=== PATIENT | female | born 1985 | race Caucasian/White ===

== ENCOUNTER 2017-03-05 16:58 | Emergency (ER) | payer SELFPAY ==
[~2017-03-05] VITALS: Ht 157.5 cm; Wt 68.5 kg
[~2017-03-05 16:58] MED LIST: ACET-2321; CYCL-375 PO; IBUP-1724 PO
[2017-03-05 17:00] VITALS: Ht 157.5 cm; Wt 68.5 kg
--- OUTSIDE RECORDS SUMMARY | 2017-03-05 17:03 | XMS REPORT ---
Author Author GENERATED, SYSTEM Organization Unknown Address Unknown Phone Unavailable Care Team Providers Care Security Developer Name Role Phone UNASSIGNED DOCTOR , DOCTOR PP [phone] Reason For Visit Chief Complaint RT HIP PAIN Social History Functional Status Vital Signs Results Problems Encounter Diagnosis No relevant problems exist. Encounters Encounter Diagnosis No relevant problems exist. Plan of Care Procedures No relevant procedures performed. Immunizations No immunizations administered or ordered. Hospital Course Hospital Discharge Instructions Allergies, Adverse Reactions, Alerts * Latex Allergy has not been assessed. * IV Contrast Allergy has not been assessed. Medication Medication reconciliation has not been performed.
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
--- OUTSIDE RECORDS SUMMARY | 2017-03-05 17:03 | XMS REPORT | Summary of Care ---
Author Author Des Torres D.O. Organization Unknown Address [address], [place] [id number] Phone Unavailable Care Team Providers Care Cash Control Specialist Name Role Phone Aliza Mai PP Unavailable Unavailable Unavailable Functional Status Functional Status Health Issues* Name Dates Details Functional status health issues are not documented Status: Cognitive Status Health Issues* Name Dates Details Cognitive status health issues are not documented Status: Problems Name Dates Details Wheezing (786.07, R06.2) Status: Active Pneumonia, bacterial (482.9, J15.9) Status: Active Reactive airway disease (493.90, J45.909) Status: Active Tobacco abuse (305.1, Z72.0) Status: Active Cough (786.2, R05) Status: Active Bronchitis, acute (466.0, J20.9) Status: Active Medications Name Dates Details Medication not documented Allergies and Adverse Reactions Name Dates Details Penicillins Status: Active Sulfa Drugs Status: Active Procedures Procedure Dates Details Procedures not documented Immunization Name Dates Details Immunizations not documented Social History Smoking Status* Unknown if ever smoked Vital Signs Date Test Result Details No Known Vitals to report Results Date Description Value Details Results not documented Plan of Care Planned Observations* Name Dates Details Planned Goals not documented Goal Planned Encounters* Appointment; Provider: Valdez Monae On 23-Feb-2008 15:45 * Appointment; Provider: Valdez Monae On 09-Feb-2008 15:00 Instructions * Instructions not documented Encounters Appointment; Stefan Aviles Encounter Diagnosis: Problem not documented On 08-Oct-2014 12:15 Appointment; Des Torres Encounter Diagnosis: Problem not documented On 28-Sep-2014 15:30 Appointment; Aliza Mai Encounter Diagnosis: Problem not documented On 26-Sep-2014 09:30 Appointment; Des Torres Encounter Diagnosis: Problem not documented On 14-Sep-2014 14:00 Appointment; Quiana Ye Encounter Diagnosis: Problem not documented On 14-Jun-2014 15:30
--- OUTSIDE RECORDS SUMMARY | 2017-03-05 17:03 | XMS REPORT | Summary of Care ---
Author Author Aliza Mai M.D. Organization Unknown Address [address] [place], [place] [phone] Phone Unavailable Care Team Providers Care Accuracy Expert Name Role Phone Zuleyma Ramirez M.D. Unavailable Unavailable Irish Mai M.D. Unavailable Unavailable Aliza Mai PP Unavailable Unavailable Unavailable Functional [...] Status: Active Sinusitis (473.9, J32.9) Status: Active Opiate addiction (304.00, F11.20) Status: Active Anxiety (300.00, F41.9) Status: Active Medications Name Dates Details Hydrocodone-Acetaminophen [...] Body Surface Area Calculated 1.64 m2 Status: 19-Sep-2015 12:27 BP Systolic 118 mm[Hg] Status: BP Diastolic 68 mm[Hg] Status: Weight 145 lb Status: Body Mass Index Calculated 26.52 kg/m2 Status: Body Surface Area Calculated 1.67 m2 Status: Results Date Description Value Details 19-Sep-2015 12:53 CBC w/ Auto Diff 7150 WBC 5.8 K/uL (Better) Range: 4.5-11.0 RBC 4.66 mil/uL (Better) Range: 3.60-5.00 HGB 14.4 g/dL (Better) Range: 12.0-16.0 HCT 45.3 % (Better) Range: 36.0-48.0 MCV 97.1 fL (Better) Range: 80.0-99.0 MCH 30.9 pg (Better) Range: 27.3-32.5 MCHC 31.8 % (Below low threshold) Range: 32.0-36.0 RDW 13.3 % (Better) Range: 11.6-14.8 PLATELETS 256 K/uL (Better) Range: 150-400 MPV 7.8 fL (Better) Range: 6.0-11.0 %NEUTRO 65.6 % (Better) Range: 37.0-80.0 %LYMPHS 27.3 % (Better) Range: 13.0-50.0 %MONO 3.1 % (Better) Range: 0.0-12.0 %EOS 2.4 % (Better) Range: 0.0-7.0 %BASO 0.3 % (Better) Range: 0.0-2.5 %KATHARINA 1.3 % (Better) Range: 0.0-5.0 NEUTRO 3.8 K/uL (Better) Range: 2.0-6.9 LYMPHS 1.6 K/uL (Better) Range: 0.6-3.4 MONOS 0.2 K/uL (Better) Range: 0.0-0.9 EOS 0.1 K/uL (Better) Range: 0.0-0.7 BASO 0.0 K/uL (Better) Range: 0.0-0.2 13:06 BASIC METABOLIC PROFILE 1210 SODIUM 137 mmol/L (Better) Range: 133-144 POTASSIUM 3.9 mmol/L (Better) Range: 3.5-5.1 CHLORIDE 101 mmol/L (Better) Range: 98-110 CARBON DIOXIDE 27.0 mmol/L (Better) Range: 23.0-33.0 ANION GAP 9 mmol/L (Better) Range: 6-16 BUN 11 mg/dL (Better) Range: 7-18 CREATININE, SERUM 0.96 mg/dL (Better) Range: 0.55-1.02 Comments: Please note new reference ranges effective 2015.----- EST GFR, >60 ml/min (Better) Range: >60 EST GFR, NON-AFR GUAMANIAN >60 ml/min (Better) Range: >60 Comments: EST GFR is reported in ml/min per 1.73 m2 of body surface area. For -[place], please multiple result by 1.2.----- BUN:CREATININE RATIO 11 (Better) GLUCOSE 82 mg/dL (Better) Range: 70-100 CALCIUM 8.6 mg/dL (Better) Range: 8.5-10.1 13:06 LIVER PROFILE 1215 ALK PHOSPHATASE 60 U/L (Better) Range: 46-116 TOTAL BILIRUBIN 0.40 mg/dL (Better) Range: 0.20-1.00 DIRECT BILIRUBIN 0.10 mg/dL (Better) Range: 0.00-0.20 AST 14 U/L (Better) Range: 8-35 ALT 26 U/L (Better) Range: 14-59 Comments: Please note new reference ranges. Effective 01/19/2015.----- ALBUMIN 3.8 g/dL (Better) Range: 3.4-5.0 TOTAL PROTEIN 7.3 g/dL (Better) Range: 6.4-8.2 13:12 THYROID STIM. HORMONE 3602 THYROID STIM. HORMONE 0.594 uIU/mL (Better) Range: 0.550-4.780 Comments: No established reference ranges for infants and children <2 years of age----- 22-Sep-2015 07:42 Drug Screen PM, Fentanyl [id number] Comments: [facility] at: [facility], [address] [place] [address], [address], [address], Shark Biologist: May Knight Ph.D.[facility] Collection Date/Time: [id number] Results Received Date/Time: [id number] Reported Date/Time: Fentanyl NEGATIVE ng/mL (Better) Range: <0.5 Comments: [AP]----- Norfentanyl NEGATIVE ng/mL (Better) Range: <0.5 Comments: [AP]----- 11:45 Drug Screen PM, Tramadol [id number] Comments: [facility] at: [facility], [address] [place] [address], [address], [address], Shark Biologist: May Knight Ph.D.[facility] Date/Time: [id number] Results Received Date/Time : [id number] Reported Date/Time: [id number] performed at: [facility], [address] [place] [address], [address], [address], Shark Biologist: May Knight Ph.D.[facility] Date/Time: [id number] Results Received Date/Time : [id number] Reported Date/Time: [id number] Desmethyltramadol NEGATIVE ng/mL (Better) Range: <100 Comments: [AP]----- Tramadol NEGATIVE ng/mL (Better) Range: <100 Comments: [AP]----- 14:36 Drug Screen PM, Alcohol Metabolites [id number] Comments: [facility] performed at: [facility], [address] [place] [address], [address], [address], Shark Biologist: May Knight Ph.D.[facility] Collection Date/Time: [id number] Results Received Date/Time: [id number] Reported Date/Time: [id number] performed at: [facility], [address] [place] [address], [address], [address], Shark Biologist: May Knight Ph.D.[facility] Date/Time: [id number] Results Received Date/Time: [id number] Reported Date/Time: [id number] performed at: [facility], [address] [place] [address], [address], [address], Shark Biologist: May Knight Ph.D.[facility] Date/Time: [id number] Results Received Date/Time: [id number] Reported Date/Time: [id number] Alcohol Metabolites NEGATIVE ng/mL (Better) Range: <500 Comments: [AP]----- Please note: SEE NOTE (Better) Comments: * These results are for medical treatment only Analysis was performed as non-forensic testing *For assistance with interpreting these drug results,please contact a [employer] ToxicologySpecialist: [phone] ( ),M-F, 8am-6pm EST.[AP]----- 23-Sep-2015 10:00 Drug Screen PM Profile 1 [id number] Comments: [facility] performed at: , [facility], [address] [place] [address], [address], [place], [address], Shark Biologist: May Knight Ph.D.[facility] Date/Time: [id number] Results Received Date/Time: [id number] Reported Date/Time: [id number] performed at: , [facility], [address] [place] [address], [address], [place], [place], [address] [place] [address], Shark Biologist: May Knight Ph.D.[facility] Date/Time: [id number] Results Received Date/Time: [id number] Reported Date/Time: [id number] performed at: , [facility], [address] [place] [address], [address], [place], [place], [address] [place] [address], Shark Biologist: May Knight Ph.D.[facility] Date/Time: [id number] Results Received Date/Time: [id number] Reported Date/Time: [id number] performed at: , [facility], [address] [place] [address], [address], [place], [place], [address] [place] [address], Shark Biologist: May Knight Ph.D.[facility] Date/Time: [id number] Results Received Date/Time: [id number] Reported Date/Time: [id number] performed at: [facility], [address] [place] [address], [address], [place], [place], [address] [place] [address], Shark Biologist: May Knight Ph.D.[facility] Date/Time: [id number] Results Received Date/Time: [id number] Reported Date/Time: [id number] Management Profile 1 w/ Confirmation, Urine Drug 1 HydrocodonePain Management Profile 1 w/ Confirmation, Urine Drug 2 No Answer GivenPain Management Profile 1 w/ Confirmation, Urine Drug 3 No Answer GivenPain Management Profile 1 w/ Confirmation, Urine Drug 4 No Answer GivenPain Management Profile 1 w/ Confirmation, Urine Drug 5 No Answer Given Prescribed Drug 1 Hydrocodone (Better) Comments: [AP]----- Creatinine 168.4 mg/dL (Better) Range: > or=20.0 Comments: [AP]----- pH 6.42 (Better) Range: 4.5 - 9.0 Comments: [AP]----- Oxidant NEGATIVE mcg/mL (Better) Range: <200 Comments: [AP]----- Amphetamines NEGATIVE ng/mL (Better) Range: <500 Comments: [AP]----- medMATCH Amphetamines CONSISTENT (Better) Comments: [AP]----- Barbiturates NEGATIVE ng/mL (Better) Range: <300 Comments: [AP]----- medMATCH Barbiturates CONSISTENT (Better) Comments: [AP]----- Benzodiazepines NEGATIVE CONFIRMED ng/mL (Better) Range: <100 Comments: [AP]----- Alphahydroxyalprazolam NEGATIVE ng/mL (Better) Range: <25 Comments: [AP]----- medMATCH aOH alprazolam CONSISTENT (Better) Comments: [AP]----- Alphahydroxymidazolam NEGATIVE ng/mL (Better) Range: <50 Comments: [AP]----- medMATCH aOH midazolam CONSISTENT (Better) Comments: [AP]----- Alphahydroxytriazolam NEGATIVE ng/mL (Better) Range: <50 Comments: [AP]----- medMATCH aOH triazolam CONSISTENT (Better) Comments: [AP]----- Aminoclonazepam NEGATIVE ng/mL (Better) Range: <25 Comments: [AP]----- medMATCH Aminoclonazepam CONSISTENT (Better) Comments: [AP]----- Hydroxyethylflurazepam NEGATIVE ng/mL (Better) Range: <50 Comments: [AP]----- medMATCH OH,Et flurazepam CONSISTENT (Better) Comments: [AP]----- Lorazepam NEGATIVE ng/mL (Better) Range: <50 Comments: [AP]----- medMATCH Lorazepam CONSISTENT (Better) Comments: [AP]----- Nordiazepam NEGATIVE ng/mL (Better) Range: <50 Comments: [AP]----- medMATCH Nordiazepam CONSISTENT (Better) Comments: [AP]----- Oxazepam NEGATIVE ng/mL (Better) Range: <50 Comments: [AP]----- medMATCH Oxazepam CONSISTENT (Better) Comments: [AP]----- Temazepam NEGATIVE ng/mL (Better) Range: <50 Comments: [AP]----- medMATCH Temazepam CONSISTENT (Better) Comments: [AP]----- Marijuana Metabolite NEGATIVE ng/mL (Better) Range: <20 Comments: [AP]----- medMATCH Marijuana Metab CONSISTENT (Better) Comments: [AP]----- Cocaine Metabolite NEGATIVE ng/mL (Better) Range: <150 Comments: [AP]----- medMATCH Cocaine Metab CONSISTENT (Better) Comments: [AP]----- Methadone POSITIVE ng/mL (Abnormal) Range: <100 Comments: [AP]----- EDDP 00271 ng/mL (Above high threshold) Range: <100 Comments: [AP]----- medMATCH EDDP INCONSISTENT (Better) Comments: EDDP is a metabolite of Methadone.[AP]----- Methadone 2944 ng/mL (Above high threshold) Range: <100 Comments: [AP]----- medMATCH Methadone INCONSISTENT (Better) Comments: [AP]----- Opiates POSITIVE ng/mL (Abnormal) Range: <100 Comments: [AP]----- Codeine NEGATIVE ng/mL (Better) Range: <50 Comments: [AP]----- medMATCH Codeine CONSISTENT (Better) Comments: [AP]----- Hydrocodone 1620 ng/mL (Above high threshold) Range: <50 Comments: [AP]----- medMATCH Hydrocodone CONSISTENT (Better) Comments: [AP]----- Hydromorphone NEGATIVE ng/mL (Better) Range: <50 Comments: [AP]----- medMATCH Hydromorphone CONSISTENT (Better) Comments: This metabolite was not present at or above the cutoff.[AP]----- Morphine NEGATIVE ng/mL (Better) Range: <50 Comments: [AP]----- medMATCH Morphine CONSISTENT (Better) Comments: [AP]----- Norhydrocodone 09449 ng/mL (Above high threshold) Range: <50 Comments: [AP]----- medMATCH Norhydrocodone CONSISTENT (Better) Comments: Norhydrocodone is a metabolite of Hydrocodone.[AP]----- Oxycodone NEGATIVE ng/mL (Better) Range: <100 Comments: [AP]----- medMATCH Oxycodone CONSISTENT (Better) Comments: [AP]----- Phencyclidine NEGATIVE ng/mL (Better) Range: <25 Comments: [AP]----- medMATCH Phencyclidine CONSISTENT (Better) Comments: [AP]----- COMMENT SEE NOTE (Better) Comments: medMATCH comments are: - present when drug test results may be the result of metabolism of one or more drugs or when results are inconsistent with prescribed medication(s) listed. - may be blank when drug results are consistent with prescribed medication(s) listed.[AP]----- 10:00 Drug Screen PM, Meperidine [id number] Comments: [facility] performed at: [facility], [address] [place] [address], [address], [place], [address], Shark Biologist: May Knight Ph.D.[facility] Collection Date/Time: [id number] Results Received Date/Time : [id number] Reported Date/Time: [id number] performed at: [facility], [address] [place] [address], [address], [place], [address], Shark Biologist: May Knight Ph.D.[facility] Date/Time: [id number] Results Received Date/Time : [id number] Reported Date/Time: [id number] performed at: [facility], [address] [place] [address], [address], [place], [address], Shark Biologist: May Knight Ph.D.[facility] Collection Date/Time: [id number] Results Received Date/Time : [id number] Reported Date/Time: [id number] performed at: , [facility], [address] [place] [address], [address], [place], [address], Shark Biologist: May Knight Ph.D.[facility] Date/Time: [id number] Results Received Date/Time : [id number] Reported Date/Time: [id number] performed at: , [facility], [facility], [address], [place], [address], Shark Biologist: May Knight Ph.D.[facility] Date/Time: [id number] Results Received Date/Time : [id number] Reported Date/Time: [id number] Meperidine NEGATIVE ng/mL (Better) Range: <100 Comments: [AP]----- Normeperidine NEGATIVE ng/mL (Better) Range: <100 Comments: [AP]----- Plan of Care Planned Observations* Name Dates [...] not documented On 02-Aug-2015 14:00 Appointment; Valdez iVllalobos Encounter Diagnosis: Problem not documented On 29-Jun-2015 [...]
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
--- OUTSIDE RECORDS SUMMARY | 2017-03-05 17:03 | XMS REPORT ---
Author Author GENERATED, SYSTEM Organization Unknown Address Unknown Phone Unavailable Care Team Providers Care Automotive Electrician Name Role Phone UNASSIGNED DOCTOR , DOCTOR PP [phone] Reason For Visit Chief Complaint HEAD/NECK/BACK PAIN FELL THIS MORNING Social History Functional Status Vital Signs Results [...]
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
--- OUTSIDE RECORDS SUMMARY | 2017-03-05 17:03 | XMS REPORT ---
Author Author GENERATED, SYSTEM Organization Unknown Address Unknown Phone Unavailable Care Team Providers Care Boat Garnisher Name Role Phone UNASSIGNED DOCTOR , DOCTOR PP [phone] Reason For Visit Chief Complaint NUMBNESS/TINGLING Social History Functional Status Vital Signs Results Chemistry from 10/19/2014 2:45 PMSODIUM 141 MMOL/L (136-145 MMOL/L) POTASSIUM 3.5 MMOL/L (3.5-5.1 MMOL/L) CHLORIDE 108 MMOL/L H (98-107 MMOL/L) TCO2 25.0 MMOL/L (21.0-32.0 MMOL/L) ANION GAP 8.0 MMOL/L (8.0-16.0 MMOL/L) BUN 9 MG/DL (7-18 MG/DL) CREATININE 0.59 MG/DL (0.43-0.83 MG/DL) BUN/CREATININE RATIO 15.3 (9.1-17.0 ) GLUCOSE 114 MG/DL H (65-99 MG/DL) GFR EST NON AFR PALAUAN >90 ML/MIN GFRA EST AFR AMER >90 ML/MIN CALCIUM 8.8 MG/DL (8.5-10.1 MG/DL) BILIRUBIN TOTAL 0.18 MG/DL L (0.20-1.00 MG/DL) TOTAL PROTEIN 6.7 GM/DL (6.4-8.2 GM/DL) ALBUMIN 3.4 GM/DL (3.4-5.0 GM/DL) GLOBULIN 3.3 GM/DL (2.3-3.5 GM/DL) A/G RATIO 1.0 MG/DL L (1.5-2.2 MG/DL) ALK PHOS 56 U/L (46-116 U/L) ALT (SGPT) 23 U/L (12-78 U/L) AST (SGOT) 13 U/L L (15-37 U/L) TROPONIN-I <0.04 (SEE BELOW ) TEST NEGATIVE (NEGATIVE ) ALCOHOL <0.003 GM/DL ACETAMINOPHEN <2 MCG/ML L (10-30 MCG/ML) SALICYLATE 2.3 MG/DL L (2.8-20.0 MG/DL) Hematology from 10/19/2014 2:45 PMWBC 7.8 X10e3/UL (3.6-11.2 X10e3/UL) RBC 4.26 X10e6/UL (3.63-4.92 X10e6/UL) HEMOGLOBIN 13.3 G/DL (11.0-14.3 G/DL) HEMATOCRIT 39.0 % (31.2-41.9 %) MCV 91.5 FL (79.0-98.0 FL) MCH 31.1 PG (27.0-33.0 PG) MCHC 34.0 G/DL (32.0-36.0 G/DL) RDW 13.2 % (12.3-17.0 %) PLATELET 207 X10e3/UL (159-386 X10e3/UL) MPV 9.9 FL (7.4-10.4 FL) AUTOMATED DIFF PERFORMED SEGS 68.2 % LYMPHOCYTES 23.9 % MONOCYTES 6.4 % EOSINOPHILS 0.8 % BASOPHILS 0.7 % ABSOLUTE NEUTROPHILS 5.2 X10e3/UL (1.8-7.8 X10e3/UL) ABSOLUTE LYMPHOCYTES 1.9 X10e3/UL (1.0-3.0 X10e3/UL) ABSOLUTE MONOCYTES 0.5 X10e3/UL (0.3-1.0 X10e3/UL) ABSOLUTE EOSINOPHILS 0.1 X10e3/UL (0.0-0.5 X10e3/UL) ABSOLUTE BASOPHILS 0.1 X10e3/UL (0.0-0.2 X10e3/UL) Coagulation from 10/19/2014 2:45 PMD-DIMER 0.21 MG/L FEU (0.00-0.50 MG/L FEU) DX Radiology from 10/19/2014 2:39 PMCHEST 1 VIEW DATE OF EXAM: Oct 19 2014 2: 53PM Proc: DG 0066 - CHEST 1 VIEW CPT Code(s): 65799-; ; ; INDICATION / CLINICAL HISTORY: Head and chest pain. COMPARISON: None. FINDINGS: The cardiac silhouette and pulmonary vasculature are within normal limits. There are no acute infiltrates or effusions. IMPRESSION: No acute cardiopulmonary disease. CT Scan from 10/19/2014 2:39 PMCT CEREBRAL W/O CONTRAST DATE OF EXAM: Oct 19 2014 2:57PM Proc: CT 0001 - CT CEREBRAL W/O CONTRAST CPT Code(s): 41195-; ; ; INDICATION / CLINICAL HISTORY: Numbness and tingling. Head and chest pain. COMPARISON: None. FINDINGS: The ventricles are normal in size and configuration. There is no mass effect or midline shift. No intracranial hemorrhage or abnormal extraaxial fluid collections are demonstrated. There is partial opacification of the sphenoid sinus. IMPRESSION: No acute intracranial processes. Problems Encounter Diagnosis No relevant problems exist. [...]
--- OUTSIDE RECORDS SUMMARY | 2017-03-05 17:03 | XMS REPORT ---
Author Author GENERATED, SYSTEM Organization Unknown Address Unknown Phone Unavailable Care Team Providers Care Crankshaft Balancer Name Role Phone UNASSIGNED DOCTOR , DOCTOR PP [phone] Reason For Visit Chief Complaint HIP PAIN Social History Functional Status Vital [...]
--- OUTSIDE RECORDS SUMMARY | 2017-03-05 17:03 | XMS REPORT | Summary of Care ---
Author Author Aliza Mai M.D. Unknown Address [address] [place], [place] [address] Phone Unavailable Care Team Providers Care Computer Numerical Control Operator Name Role Phone Zuleyma Ramirez M.D. Unavailable [...]
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
--- OUTSIDE RECORDS SUMMARY | 2017-03-05 17:03 | XMS REPORT | Continuity of Care Document ---
Author Author Jacqueline Younger MA [facility] Address [address] [place] [address] Phone Care Team Providers Care Over Short And Damage Clerk Name Role Phone Josh Peguero PP Unavailable Payers Payer name Insurance type Covered green party ID Authorization(s) Unknown Problems Condition Effective Dates (start - stop) Clinical Status Overweight - *Chronic ACUTE BRONCHOSPASM - *Acute Bronchitis, Acute - *Acute Overweight - Improved Bronchitis, Acute - *Acute Diarrhea - *Acute Overweight - Improved Obesity - *Chronic Fall at home - *Acute Place of occurrence, home - *Acute Back pain - *Acute Cough - *Acute Viral Infection, Unspecified - *Acute Noninfectious Gastroenteritis - *Acute Amenorrhea - *Acute Family History Family Member Diagnosis Age At [...] every day before breakfast 37.5 MG - No Longer Active ZYRTEC (unknown strength) - Active IBUPROFEN (unknown strength) - Active phentermine 37.5 mg tablet take 1 tablet (37.5MG) by oral route every day before breakfast 37.5 MG - Active Immunizations Vaccine Date Status Comments Unknown Results Test Name Date and Time Measure Units Reference Range Abnormal Flag Comments Unknown Vital Signs Date / Time: Height Weight Pulse Rate Blood Pressure Temperature /16:12:00 62.50 in 160.20 lbs 99 /min 120/90 mm[Hg] 98.0 F Procedures Procedure Date Unknown Encounters Encounter Location Date Patient Visit [facility] Patient Visit [facility] Patient Visit [facility] Patient Visit [facility] Patient Visit [facility] Patient Visit [facility] Patient Visit [facility] Patient Visit [facility] Patient Visit [facility] Care Patient Visit [facility] Advance Directives Directive Effective Date Unknown
--- OUTSIDE RECORDS SUMMARY | 2017-03-05 17:04 | XMS REPORT | Summary of Care ---
Author Author Des Torres D.O. Organization Unknown Address [address] [place], [place] [address] Phone Unavailable Care Team Providers Care Medical Coder Name Role Phone Aliza Mai JAYLENE Unavailable [...]
--- OUTSIDE RECORDS SUMMARY | 2017-03-05 17:04 | XMS REPORT ---
Author Author [facility] Organization [facility] Address [address] [place], [place] [address] Phone [phone] Summary purpose CCDA Sent to [facility] Chief Complaint and Reason for Visit No authorized Reason for Visit (Admitting Diagnosis) is available for this visit. Problem list No authorized problems tracked for continuity of care are available for this visit. Encounters No authorized problems tracked for encounter diagnoses are available for this visit. Medications No home medications recorded for this patient visit Allergies, adverse reactions, alerts Allergen Category Ingredient Status Reaction Severity Onset Penicillins Drug Penicillins Active Sulfa (Sulfonamide Antibiotics) Drug Sulfa (Sulfonamide Antibiotics) Active Immunizations No immunizations recorded for this patient visit Relevant diagnostic tests and/or laboratory data RESULTS Urinalysis 10-63-641926:00:00 Result Normal Range Units Site Voided Urine Color Yellow Yellow Urine Appearance AB Cloudy Clear Urine Glucose Negative Negative Urine Ketones AB 2+ Negative Urine Bilirubin AB 1+ Negative Urine Protein AB 1+ Negative Urine Specific [place] 1.030 Urine Urobilinogen 0.2 0.2-1.0 Urine pH 5.5 Urine Nitrite Negative Negative Urine Blood AB 3+ Negative Urine Leukocytes Negative Negative Urine WBC 0-2 /hpf Urine RBC >100/lpf Urine Bacteria AB Trace None Seen Squamous Epi Cells 5-6/lpf Mucus 3+ Culture not indicated. Culture not indicated. History of procedures No procedures recorded for this patient visit. Functional status Cognitive Status Finding Observation Time Level of Consciousne Alert :58 Oriented to Person Yes :[address] Yes :58 Oriented to Time Yes :58 Vital signs Type Value Date Respirations 20 :26 Pulse 85 :26 O2 Saturation 99% :26 Systolic Blood Press 119mm/HG [id number]:26 Diastolic Blood Pres 65mm/HG 97-65-860126:26 Temperature (Fahr) 98Degrees 68-32-579502:26 Height 62in :59 Weight 144LB :59 Social history Type Value Smoking Status CURRENT EVERY DAY SMOKER Treatment Plan No treatment plan text is available for this visit. Hospital discharge instructions No discharge instruction text is available for this visit.
--- OUTSIDE RECORDS SUMMARY | 2017-03-05 17:04 | XMS REPORT | Continuity of Care Document ---
Author Author [facility] Organization [facility] Address Unknown Phone Unavailable Support Name Relationship Address Phone DAVID AVILES Next Of Kin [address] [place] [address] Unavailable Insurance Providers Payer Name Policy Number Subscriber Name Relationship Self Pay Kaylyn Aviles 18 Self Problems No Known Problems or Medical conditions. Social History History Response Recorded Date/Time Smoking Status Current every day smoker 05/16/13 8:32am Allergies, Adverse Reactions, Alerts Allergen Type Severity Reaction Last Updated Penicillins Allergy Severe 05/16/13 Sulfa (Sulfonamide Antibiotics) Allergy Severe 05/16/13 Medications No known medications Response Recorded Date/Time Status not known Unknown Results No Known Relevant Diagnostic Tests, Laboratory Data and/or Discharge Summary. Procedures Procedure Code Date THER/PROPH/DIAG INJ IV PUSH 48260 05/16/13 TX/PRO/DX INJ NEW DRUG ADDON 54474 05/16/13 TX/PRO/DX INJ NEW DRUG ADDON 79574 05/16/13 HYDRATE IV INFUSION ADD-ON 71907 05/16/13 Encounters Encounter Location Date/Time Departed Emergency Room [facility] 05/16/13 8:14am
--- OUTSIDE RECORDS SUMMARY | 2017-03-05 17:04 | XMS REPORT ---
Author Author GENERATED, SYSTEM Organization Unknown Address Unknown Phone Unavailable Care Team Providers Care Shoe Trimmer Name Role Phone MD KATHY, JULIAN PP [phone] Reason For Visit Chief Complaint COUGH Social History Functional Status Vital Signs Results [...]
--- OUTSIDE RECORDS SUMMARY | 2017-03-05 17:04 | XMS REPORT | Summary of Care ---
Author Author Zuleyma Ramirez M.D. Unknown Address [address] [place], [place] [id number] Phone Unavailable Care Team Providers Care Machine Sewer Name Role Phone Zuleyma Ramirez M.D. Unavailable Unavailable Pau Jones, Irish Unavailable Unavailable Aliza Mai PP Unavailable Unavailable [...] Quantity: 30 Zuleyma Ramirez M.D.* Started 11-Sep-2015 ActiveProventil HFA 108 (90 Base) MCG/ACT Inhalation Aerosol Solution INHALE 2 PUFFS 3 TIMES DAILY NEEDED. * Quantity: 1 Refills: 2 Aliza Mai M.D.* Started 19-Sep-2015 Active6.7 GM Inhaler Allergies and Adverse Reactions Name Dates Details Penicillins Status: Active Sulfa Drugs Status: Active Procedures Procedure Dates Details Drug Screen Pain Management 8400 Ordered:19-Sep-2015 Immunization Name Dates Details Immunizations not documented Social History Name Dates Details Smoking Status* Smoker. current status unknown Vital Signs Date Test Result Details 19-Sep-2015 12:27 BP Systolic 118 mm[Hg] Status: BP Diastolic 68 mm[Hg] Status: Weight 145 lb Status: Body Mass Index Calculated 26.52 kg/m2 Status: Body Surface Area Calculated 1.67 m2 Status: 11-Sep-2015 13:00 BP Systolic 112 mm[Hg] Status: [...] ml/min (Better) Range: >60 EST GFR, NON-AFR ARMENIAN >60 ml/min (Better) Range: >60 Comments: EST GFR is reported in ml/min per 1.73 m2 of body surface area. For -Estonian, please multiple result by 1.2.----- BUN:CREATININE RATIO [...] age----- 22-Sep-2015 07:42 Drug Screen PM, Fentanyl [id number] Comments: [facility] performed at: [facility], [address] [place] [address], [address], [place], [place], [address] [place] [address], Carousel Operator: May Knight Ph.D.[facility] Collection Date/Time: [id number] Results Received Date/Time: [id number] Reported Date/Time: Fentanyl NEGATIVE ng/mL (Better) Range: <0.5 Comments: [AP]----- Norfentanyl NEGATIVE ng/mL (Better) Range: <0.5 Comments: [AP]----- 11:45 Drug Screen PM, Tramadol [id number] Comments: [facility] performed at: [facility], [address] [place] [address], [address], [address], Carousel Operator: May Knight Ph.D.[facility] Collection Date/Time: [id number] Results Received Date/Time : [id number] Reported Date/Time: [id number] performed at: [facility], [address] [place] [address], [address], [address], Carousel Operator: May Knight Ph.D.[facility] Collection Date/Time: [id number] Results Received Date/Time : [id number] Reported Date/Time: [id number] Desmethyltramadol NEGATIVE ng/mL (Better) Range: <100 Comments: [AP]----- Tramadol NEGATIVE ng/mL (Better) Range: <100 Comments: [AP]----- 14:36 Drug Screen PM, Alcohol Metabolites [id number] Comments: [facility] performed at: [facility], [address] [place] [address], [address], [place], [address], Carousel Operator: May Knight Ph.D.[facility] Collection Date/Time: [id number] Results Received Date/Time: [id number] Reported Date/Time: [id number] performed at: , [facility], [address] [place] [address], [address], [place], [address], Carousel Operator: May Knight Ph.D.[facility] Collection Date/Time: [id number] Results Received Date/Time: [id number] Reported Date/Time: [id number] performed at: , [facility], [address] [place] [address], [address], [place], [address], Carousel Operator: May Knight Ph.D.[facility] Collection Date/Time: [id number] Results Received Date/Time: Reported Date/Time: Alcohol Metabolites NEGATIVE ng/mL (Better) Range: <500 Comments: [AP]----- Please note: SEE NOTE (Better) Comments: * These results are for medical treatment only Analysis was performed as non-forensic testing *For assistance with interpreting these drug results,please contact a AddressReport ToxicologySpecialist: [phone] ( ),M-F, 8am-6pm EST.[AP]----- 23-Sep-2015 10:00 Drug Screen PM Profile 1 [id number] Comments: [facility], [address] [place] [address], [address], [place], [address], Carousel Operator: May Knight Ph.D.[facility] Collection Date/Time: [id number] Results Received Date/Time: [id number] Reported Date/Time: [id number] performed at: , [facility], [address] [place] [address], [address], [place], [address], Carousel Operator: May Knight Ph.D.[facility] Collection Date/Time: [id number] Results Received Date/Time: [id number] Reported Date/Time: [id number] performed at: , [facility], [address] [place] [address], [address], [place], [address], Carousel Operator: May Knight Ph.D.[facility] Collection Date/Time: [id number] Results Received Date/Time: [id number] Reported Date/Time: [id number] performed at: , [facility], [facility], [address], [place], [address], Carousel Operator: May Knight Ph.D.[facility] Collection Date/Time: [id number] Results Received Date/Time: [id number] Reported Date/Time: [id number] performed at: , [facility], [address] [facility], [address], [place], [address], Carousel Operator: May Knight Ph.D.[facility] Collection Date/Time: [id number] Results Received Date/Time: [id number] Reported Date/Time: [id number] Management Profile 1 w/ Confirmation, Urine Drug [...] ng/mL (Abnormal) Range: <100 Comments: [AP]----- EDDP 80961 ng/mL (Above high threshold) Range: <100 Comments: [...] medMATCH Morphine CONSISTENT (Better) Comments: [AP]----- Norhydrocodone 62848 ng/mL (Above high threshold) Range: <50 Comments: [...] medication(s) listed.[AP]----- 10:00 Drug Screen PM, Meperidine [id number] Comments: [facility] performed at: [facility], [address] [place] [address], [address], [place], [place], [address] [place] [address], Carousel Operator: May Knight Ph.D.[facility] Collection Date/Time: [id number] Results Received Date/Time : [id number] Reported Date/Time: [id number] performed at: [facility], [address] [place] [address], [address], [place], [address], Carousel Operator: May Knight Ph.D.[facility] Collection Date/Time: [id number] Results Received Date/Time : [id number] Reported Date/Time: [id number] performed at: [facility], [address] [place] [address], [address], [place], [address], Carousel Operator: May Knight Ph.D.[facility] Collection Date/Time: [id number] Results Received Date/Time : [id number] Reported Date/Time: [id number] performed at: [facility], [address] [place] [address], [address], [place], [address], Carousel Operator: May Vang Knight Ph.D.[facility] Collection Date/Time: [id number] Results Received Date/Time : [id number] Reported Date/Time: [id number] performed at: [facility], [address] [place] [address], [address], [place], [address], Carousel Operator: May Vang Knight Ph.D.[facility] Collection Date/Time: [id number] Results Received Date/Time : [id number] Reported Date/Time: [id number] Meperidine NEGATIVE ng/mL (Better) Range: <100 Comments: [...]
--- OUTSIDE RECORDS SUMMARY | 2017-03-05 17:04 | XMS REPORT ---
Author Author GENERATED, SYSTEM Organization Unknown Address Unknown Phone Unavailable Care Team Providers Care Incinerator Operator Name Role Phone UNASSIGNED DOCTOR , DOCTOR PP [phone] Reason For Visit Chief Complaint MIGRAINE WITH FLU LIKE SYMPTOMS Social History Functional Status Vital Signs Results [...]
--- OUTSIDE RECORDS SUMMARY | 2017-03-05 17:04 | XMS REPORT | Summary of Care ---
Author Author Aliza Mai M.D. Organization Unknown Address [address] [place], [place] [id number] Phone Unavailable Care Team Providers Care Grout Machine Tender Name Role Phone Zuleyma Ramirez M.D. Unavailable [...] ml/min (Better) Range: >60 EST GFR, NON-AFR ANDORRAN >60 ml/min (Better) Range: >60 Comments: EST GFR is reported in ml/min per 1.73 m2 of body surface area. For -Latvian, please multiple result by 1.2.----- BUN:CREATININE RATIO [...] age----- 22-Sep-2015 07:42 Drug Screen PM, Fentanyl [id number] Comments: [facility]: [facility], [address] [place] [address], [address], [place], [address], Head Of Cytogenetics: May Knight Ph.D.[facility] Collection Date/Time: [id number] Results Received Date/Time: [id number] Reported Date/Time: Fentanyl NEGATIVE ng/mL (Better) Range: <0.5 Comments: [AP]----- Norfentanyl NEGATIVE ng/mL (Better) Range: <0.5 Comments: [AP]----- 11:45 Drug Screen PM, Tramadol [id number] Comments: [facility] at: [facility], [address] [place] [address], [address], [address], Head Of Cytogenetics: May Knight Ph.D.[facility] Collection Date/Time: [id number] Results Received Date/Time : [id number] Reported Date/Time: [id number] performed at: [facility], [address] [place] [address], [address], [address], Head Of Cytogenetics: May Knight Ph.D.[facility] Collection Date/Time: [id number] Results Received Date/Time : [id number] Reported Date/Time: [id number] Desmethyltramadol NEGATIVE ng/mL (Better) Range: <100 Comments: [AP]----- Tramadol NEGATIVE ng/mL (Better) Range: <100 Comments: [AP]----- 14:36 Drug Screen PM, Alcohol Metabolites [id number] Comments: [facility] performed at: [facility], [address] [place] [address], [address], [address], Head Of Cytogenetics: May Knight Ph.D.[facility] Collection Date/Time: [id number] Results Received Date/Time: [id number] Reported Date/Time: [id number] performed at: [facility], [address] [place] [address], [address], [address], Head Of Cytogenetics: May Knight Ph.D.[facility] Collection Date/Time: [id number] Results Received Date/Time: [id number] Reported Date/Time: [id number] performed at: [facility], [address] [place] [address], [address], [address], Head Of Cytogenetics: May Knight Ph.D.[facility] Collection Date/Time: [id number] Results Received Date/Time: [id number] Reported Date/Time: [id number] Alcohol Metabolites NEGATIVE ng/mL (Better) Range: <500 Comments: [AP]----- Please note: SEE NOTE (Better) Comments: * These results are for medical treatment only Analysis was performed as non-forensic testing *For assistance with interpreting these drug results,please contact a Dibbz ToxicologySpecialist: [phone] ( ),M-F, 8am-6pm EST.[AP]----- 23-Sep-2015 10:00 Drug Screen PM Profile 1 [id number] Comments: [facility] performed at: , [facility], [address] [place] [address], [address], [place], [address], Head Of Cytogenetics: May Knight Ph.D.[facility] Collection Date/Time: [id number] Results Received Date/Time: [id number] Reported Date/Time: [id number] performed at: , [facility], [address] [place] [address], [address], [place], [address] [place] [address], Head Of Cytogenetics: May Knight Ph.D.[facility] Collection Date/Time: [id number] Results Received Date/Time: [id number] Reported Date/Time: [id number] performed at: , [facility], [address] [place] [address], [address], [place], [address] [place] [address], Head Of Cytogenetics: May Knight Ph.D.[facility] Collection Date/Time: [id number] Results Received Date/Time: [id number] Reported Date/Time: [id number] performed at: , [facility], [address] [place] [address], [address], [place], [address] [place] [address], Head Of Cytogenetics: May Knight Ph.D.[facility] Collection Date/Time: [id number] Results Received Date/Time: [id number] Reported Date/Time: [id number] performed at: [facility], [address] [place] [address], [address], [place], [address] [place] [address], Head Of Cytogenetics: May Knight Ph.D.[facility] Collection Date/Time: [id number] Results Received Date/Time: [id number] Reported Date/Time: [id number] Management Profile 1 w/ Confirmation, Urine Drug [...] ng/mL (Abnormal) Range: <100 Comments: [AP]----- EDDP 07657 ng/mL (Above high threshold) Range: <100 Comments: [...] medMATCH Morphine CONSISTENT (Better) Comments: [AP]----- Norhydrocodone 94966 ng/mL (Above high threshold) Range: <50 Comments: [...] medication(s) listed.[AP]----- 10:00 Drug Screen PM, Meperidine [id number] Comments: [facility] performed at: [facility], [address] [place] [address], [address], [place], [address], Head Of Cytogenetics: May Knight Ph.D.[facility] Collection Date/Time: [id number] Results Received Date/Time : [id number] Reported Date/Time: [id number] performed at: [facility], [address] [place] [address], [address], [place], [address], Head Of Cytogenetics: May Knight Ph.D.[facility] Collection Date/Time: [id number] Results Received Date/Time : [id number] Reported Date/Time: [id number] performed at: [facility], [address] [place] [address], [address], [place], [address], Head Of Cytogenetics: May Knight Ph.D.[facility] Collection Date/Time: [id number] Results Received Date/Time : [id number] Reported Date/Time: [id number] performed at: , [facility], [address] [place] [address], [address], [place], [address], Head Of Cytogenetics: May Knight Ph.D.[facility] Collection Date/Time: [id number] Results Received Date/Time : [id number] Reported Date/Time: [id number] performed at: , [facility], [facility], [address], [place], [address], Head Of Cytogenetics: May Knight Ph.D.[facility] Collection Date/Time: [id number] Results Received Date/Time : [id number] Reported Date/Time: [id number] Meperidine NEGATIVE ng/mL (Better) Range: <100 Comments: [...]
--- OUTSIDE RECORDS SUMMARY | 2017-03-05 17:04 | XMS REPORT ---
Author Author GENERATED, SYSTEM Organization Unknown Address Unknown Phone Unavailable Care Team Providers Care Director Of Teaching And Learning Name Role Phone UNASSIGNED DOCTOR , DOCTOR PP [phone] Reason For Visit Chief Complaint FELL HIT HEAD Social History Functional Status Vital Signs Results [...]
--- OUTSIDE RECORDS SUMMARY | 2017-03-05 17:04 | XMS REPORT ---
Author Author GENERATED, SYSTEM Organization Unknown Address Unknown Phone Unavailable Care Team Providers Care Penology Teacher Name Role Phone UNASSIGNED DOCTORMD DOCTOR PP [phone] Reason For Visit Chief Complaint ALLERGIC REACTION Social History Functional Status Vital Signs Results [...]
--- OUTSIDE RECORDS SUMMARY | 2017-03-05 17:04 | XMS REPORT ---
Author Author GENERATED, SYSTEM Organization Unknown Address Unknown Phone Unavailable Care Team Providers Care Senior Business Objects Developer Name Role Phone MD KATHY, JULIAN PP [phone] Reason For Visit Chief Complaint ELBOW PAIN Social History Functional Status Vital Signs [...]
--- OUTSIDE RECORDS SUMMARY | 2017-03-05 17:04 | XMS REPORT | Summary of Care ---
Author Author Aliza Mai M.D. Organization Unknown Address [address] [place], [place] [address] Phone Unavailable Care Team Providers Care Irrigation Worker Name Role Phone Pau Jones, R Unavailable Unavailable Aliza Mai PP Unavailable Unavailable [...] F11.20) Status: Active Medications Name Dates Details Proventil HFA 108 (90 Base) MCG/ACT Inhalation Aerosol Solution INHALE 2 PUFFS 3 TIMES DAILY NEEDED. Quantity: 1 Aliza Mai M.D.* Started 19-Sep-2015 Active6.7 GM Inhaler Allergies and Adverse Reactions Name Dates Details Penicillins Status: Active Sulfa Drugs Status: Active Procedures Procedure Dates Details CBC w/ Auto Diff 7150 Ordered:19-Sep-2015 BASIC METABOLIC PROFILE 1210 Ordered:19-Sep-2015 THYROID STIM. HORMONE 3602 Ordered:19-Sep-2015 LIVER PROFILE 1215 Ordered:19-Sep-2015 Drug Screen Pain Management 8400 Ordered:19-Sep-2015 CT HEAD WITHOUT IV CONTRAST Ordered:02-Aug-2015 XRay [...] Planned Encounters* Appointment; Provider: Aliza Mai On 26-Sep-2015 11:30 * Appointment; Provider: Valdez Monae On [...]
--- OUTSIDE RECORDS SUMMARY | 2017-03-05 17:04 | XMS REPORT | Continuity Of Care Document ---
Author Author [facility] Organization [facility] Address [address] [place] [address] Phone Care Team Providers Care Pole Framer Name Role Phone Amanda MULTANI MD AT UNASSIGNED, PHYSICIAN Unavailable Unavailable Results Lab Results Visit/Account #[id number] (July 11, 2015 5:39pm - July 11, 2015 6: 49pm) Test Result Date/Time 63139-8: COMPLETE BLOOD COUNT WITH DIFF WHITE BLOOD COUNT(4.0-11.0 10E3/UL) 5.8 10E3/UL July 11, 2015 5:54pm RED BLOOD COUNT(4.00-5.20 10E6/UL) 4.57 10E6/UL July 11, 2015 5:54pm HEMOGLOBIN(12.0-16.0 G/DL) 14.6 G/DL July 11, 2015 5:54pm HEMATOCRIT(36.0-46.0 %) 42.8 % July 11, 2015 5:54pm MEAN CORPUSCULAR VOLUME(82.0-100.0 FL) 93.7 FL July 11, 2015 5:54pm 87882-2: MEAN CORPUSCULAR HEMOGLOBIN(26.0-34.0 PG) 31.9 PG July 11, 2015 5:54pm MEAN CORPUSCULAR HGB CONC(31.5-36.5 G/DL) 34.1 G/DL July 11, 2015 5:54pm RED CELL DISTRIBUTION WIDTH(11.5-14.5 %) 13.4 % July 11, 2015 5:54pm 777-3: PLATELET COUNT(150-450 10E3/UL) 224 10E3/UL July 11, 2015 5:54pm MEAN PLATELET VOLUME(8.2-12.4 FL) 10.7 FL July 11, 2015 5:54pm 770-8: NEUTROPHILS % (AUTO)(40-70 %) 59 % July 11, 2015 5:54pm LYMPHOCYTES % (AUTO)(15-45 %) 29 % July 11, 2015 5:54pm 5905-5: MONOCYTES % (AUTO)(2-10 %) 9 % July 11, 2015 5:54pm 713-8: EOSINOPHILS % (AUTO)(0-6 %) 1 % July 11, 2015 5:54pm 706-2: BASOPHILS % (AUTO)(0-1 %) 1 % July 11, 2015 5:54pm 26992-2: IMMATURE GRANS % (AUTO)(0-0 %) 0 % July 11, 2015 5:54pm NUCLEATED RBCS (AUTO)(0-0 %) 0 % July 11, 2015 5:54pm 751-8: NEUTROPHILS # (AUTO)(2.5-7.5 10E3/UL) 3.5 10E3/UL July 11, 2015 5:54pm 52328-9: LYMPHOCYTES # (AUTO)(1.0-4.0 10E3/UL) 1.7 10E3/UL July 11, 2015 5:54pm 742-7: MONOCYTES # (AUTO)(0.2-0.8 10E3/UL) 0.5 10E3/UL July 11, 2015 5:54pm 711-2: EOSINOPHILS # (AUTO)(0.0-0.4 10E3/UL) 0.1 10E3/UL July 11, 2015 5:54pm 704-7: BASOPHILS # (AUTO)(0.0-0.2 10E3/UL) 0.0 10E3/UL July 11, 2015 5:54pm IMMATURE GRANS # (AUTO)(0.0-0.0 10E3/UL) 0.0 10E3/UL July 11, 2015 5:54pm DIFF TYPE AUTOMATED July 11, 2015 5:54pm UA WITH SCREEN FOR CULTURE 5778-6: COLOR,URINE YELLOW July 11, 2015 5:49pm 69160-4: CLARITY,URINE SL CLOUDY July 11, 2015 5:49pm GLUCOSE, URINE(NEGATIVE MG/DL) NEGATIVE MG/DL July 11, 2015 5:49pm URINE BILIRUBIN(NEGATIVE) NEGATIVE July 11, 2015 5:49pm 46109-5: KETONES,URINE(NEGATIVE MG/DL) NEGATIVE MG/DL July 11, 2015 5:49pm 2965-2: URINE SPECIFIC GRAVITY(1.001-1.035) 1.020 July 11, 2015 5:49pm 15857-0: URINE BLOOD(NEGATIVE) LARGE July 11, 2015 5:49pm 2756-5: URINE PH(5.0-9.0) 6.5 July 11, 2015 5:49pm URINE PROTEIN(Less than 20 MG/DL) NEGATIVE MG/DL July 11, 2015 5:49pm URINE UROBILINOGEN(0.2-1.0 MG/DL) 0.2 MG/DL July 11, 2015 5:49pm URINE NITRITE(NEGATIVE) NEGATIVE July 11, 2015 5:49pm 5799-2: LEUKOCYTE ESTERASE ,URINE(NEGATIVE) NEGATIVE July 11, 2015 5:49pm 630-4: URINE CULTURE NOT INDICATED July 11, 2015 5:49pm URINE MICROSCOPIC REQUIRED YES July 11, 2015 5:49pm URINE WBCS(/HPF) NONE SEEN /HPF July 11, 2015 5:49pm 08885-3: URINE RBCS(/HPF) Greater than 100 /HPF July 11, 2015 5:49pm 57113-0: URINE EPITHELIAL CELLS(/HPF) 4-7 /HPF July 11, 2015 5:49pm BACTERIA,URINE(/HPF) 1+ /HPF July 11, 2015 5:49pm URINE CRYSTALS(/HPF) NONE SEEN /HPF July 11, 2015 5:49pm URINE CASTS(/LPF) NONE SEEN /LPF July 11, 2015 5:49pm URINE COMMENTS NONE July 11, 2015 5:49pm 70183-4: COMPLETE METABOLIC PROFILE GLUCOSE(70-110 MG/DL) 103 MG/DL July 11, 2015 5:54pm BLOOD UREA NITROGEN(6-20 MG/DL) 11 MG/DL July 11, 2015 5:54pm CREATININE(0.50-1.20 MG/DL) 0.61 MG/DL July 11, 2015 5:54pm 48456-6: EST GLOMERULAR FILTRATION RATE(Greater than or equal to 60) Greater than or equal to 60 Result Comments: If the patient is of -[place] descent/extraction multiply the eGFR value by 1.212 to obtain the actual eGFR. >=60 mg/dL Normal 30-59 mg/dL Moderate Kidney Disease 15-29 mg/dL Severe Kidney Disease <15 mg/dL Kidney Failure July 11, 2015 5:54pm BUN CREATININE RATIO(10.0-20.0 RATIO) 18.0 RATIO July 11, 2015 5:54pm SODIUM(135-145 MMOL/L) 137 MMOL/L July 11, 2015 5:54pm POTASSIUM(3.6-5.0 MMOL/L) 3.8 MMOL/L July 11, 2015 5:54pm CHLORIDE(101-111 MMOL/L) 106 MMOL/L July 11, 2015 5:54pm 2028-9: CO2(21-31 MMOL/L) 25.0 MMOL/L July 11, 2015 5:54pm 67456-5: ANION GAP(8-18) 10 July 11, 2015 5:54pm OSMO CALCULATED(270.0-290.0) 273.5 July 11, 2015 5:54pm CALCIUM(8.5-10.5 MG/DL) 9.0 MG/DL July 11, 2015 5:54pm BILIRUBIN,TOTAL(0.1-1.2 MG/DL) 0.3 MG/DL July 11, 2015 5:54pm ALKALINE PHOSPHATASE(42-121 IU/L) 51 IU/L July 11, 2015 5:54pm ASPARTATE AMINO TRANSFERASE(10-42 IU/L) 23 IU/L July 11, 2015 5:54pm ALANINE AMINOTRANSFERASE(10-60 IU/L) 30 IU/L July 11, 2015 5:54pm 45596-0: TOTAL PROTEIN(6.4-8.2 G/DL) 7.1 G/DL July 11, 2015 5:54pm ALBUMIN(3.5-5.5 G/DL) 4.0 G/DL July 11, 2015 5:54pm 2336-6: GLOBULIN(2.4-3.6) 3.1 July 11, 2015 5:54pm ALBUMIN/GLOBULIN RATIO(0.9-1.8 RATIO) 1.3 RATIO July 11, 2015 5:54pm 3040-3: LIPASE 3040-3: LIPASE(22-51 U/L) 24 U/L July 11, 2015 5:54pm SERUM HCG, QUALITATIVE 0-5: SERUM HCG, QUALITATIVE(NEGATIVE) NEGATIVE July 11, 2015 5:54pm Allergies and Adverse Reactions Allergies and Adverse Reactions Patient Unit Number: [id number] No allergies recorded. Problem List Problem List Visit/Account #[id number] (July 11, 2015 5:39pm - July 11, 2015 6: 49pm) Acute Problems: Code/Condition Comments Documented Start Date Documented Resolved Date Code (s) Hematuria ICD10: R31.9 Hematuria ICD9: 599.70 Hematuria SNOMED: 11852290 Hematuria Flank pain ICD10: R10.9 Flank pain ICD9: 789.00 Flank pain SNOMED: 534364628 Flank pain Plan of Care Plan Of Care Visit/Account #[id number] (July 11, 2015 5:39pm - July 11, 2015 6: 49pm) Patient Instructions Followup with your regular Dr. or return to emergency department as needed. Continue taking her Toradol as directed for pain. Take the Whiteside as directed for pain that is not relieved by Toradol. Vital Signs Vital Signs Visit/Account #[id number] (July 11, 2015 5:39pm - July 11, 2015 6: 49pm) Sign First Result Last Result Code(s) Body Mass Index Body Mass Index (BMI): 26.0 kg/m2 On July 11, 2015 5:30pm 93549-7 BMI (body mass index) Body Mass Index as a Calculated Value 26.2 kg/m2 On July 11, 2015 5:30pm 99568-2 BMI (body mass index) Body Surface Area as a Calculated Value 1.66 m2 On July 11, 2015 5:30pm 3140-1 BSA (body surface area) Height (Feet/Inches) 5 [ft_us] 2 [in_us] On July 11, 2015 5:30pm Temperature in Fahrenheit Temperature (Fahrenheit): 97.9 [degF] On July 11, 2015 5:30pm Temperature (Fahrenheit): 98.0 [degF] On July 11, 2015 6:40pm 8310-5 Body Temperature Weight in Kilograms Weight (Kilograms): 65 kg On July 11, 2015 5:30pm 3141-9 Weight Measured 35593-6 Body weight measured in kilograms Functional Status Functional and Cognitive Status No Functional Status Data Medications Inpatient/Ordered Medications - Medications administered during hospital visit Visit/Account #[id number] (July 11, 2015 5:39pm - July 11, 2015 6: 49pm) Medication Route Sig/Schedule Precondition/Indication Comments/Instructions Codes TORADOL INJ(KETOROLAC TROMETHAMINE) 30 MG/ML INJECTION Dose: 1 ML INTRAVEN NOW Rx Order Comments: Order placed as verified: Dose Warnings differ from eating disorder specialist Label Comments: DO NOT EXCEED 5 DAYS OF THERAPY Ketorolac Tromethamine 30 MG/ML Injectable Solution (RxNorm): 276829 TORADOL INJ (KETOROLAC TROMETHAMINE) NDC: 31269738952 Discharge Medications - Medications that patient should continue to take. Review with physician Visit/Account #[id number] (July 11, 2015 5:39pm - July 11, 2015 6: 49pm) Medication Route Sig/Schedule Precondition/Indication Comments/Instructions Codes NORCO 5-325 TABLET(HYDROcodone BIT/ACETAMINOPHEN) 1 TAB TABLET Dose: 1-2 TAB ORAL EVERY 4 HOURS PAIN Rx Instructions: 1-2 TAB Acetaminophen 325 MG / Hydrocodone Bitartrate 5 MG Oral Tablet (RxNorm): 608979 NORCO 5-325 TABLET (HYDROcodone BIT/ACETAMINOPHEN) NDC: 42548135463 History Of Encounters Encounters Visit/Account #[id number] (July 11, 2015 5:39pm - July 11, 2015 6: 49pm) Account Status Physican Of Record Reason For Visit Visit Diagnosis Start Date/Time Stop Date/Time ER MARELY MULTANI MD ? KIDNEY STONE 724.5: BACKACHE NOS ICD9 Jul 11, 2015 5:39pm Jul 11, 2015 6:49pm History of Procedures Procedure List No procedures recorded. Discharge Instructions Discharge Instructions Visit/Account #[id number] (July 11, 2015 5:39pm - July 11, 2015 6: 49pm) DISCHARGE INSTRUCTIONS Physician Documentation Social History Social History No Social History Data. Immunizations Immunizations Patient Unit Number: [id number] Immunizations No immunizations recorded.
--- OUTSIDE RECORDS SUMMARY | 2017-03-05 17:04 | XMS REPORT | Continuity of Care Document ---
Author Author [facility] Organization [facility] Address Unknown Phone Unavailable Support Name Relationship Address Phone DAVID AVILES Next Of Kin [address] [place] [address] Unavailable Insurance Providers Payer Name Policy Number [...] Procedure Code Date THER/PROPH/DIAG INJ IV PUSH 10107 05/16/13 TX/PRO/DX INJ NEW DRUG ADDON 32773 05/16/13 TX/PRO/DX INJ NEW DRUG ADDON 30505 05/16/13 HYDRATE IV INFUSION ADD-ON 51786 05/16/13 Encounters Encounter Location Date/Time Departed Emergency Room [facility] 05/16/13 8:14am
--- OUTSIDE RECORDS SUMMARY | 2017-03-05 17:04 | XMS REPORT | Summary of Care ---
Author Author Valdez Villalobos M.D. Organization Unknown Address [address] [place], [place] [address] Phone Unavailable Care Team Providers Care Sterile Processing Technologist Name Role Phone Aliza Mai PP Unavailable [...] Active Bronchitis, acute (466.0, J20.9) Status: Active Urinary symptom or sign (788.99, R39.9) Status: Active Medications Name Dates Details Medication not documented Allergies and Adverse Reactions Name Dates Details Penicillins Status: Active Sulfa Drugs Status: Active Procedures Procedure Dates Details Urinalysis, Reflex to Microscopic or Culture PRN [id number] Ordered:29-Jun-2015 Immunization Name Dates Details Immunizations not documented [...] Instructions * Instructions not documented Encounters Appointment; Valdez Villalobos Encounter Diagnosis: Problem not [...]
--- OUTSIDE RECORDS SUMMARY | 2017-03-05 17:04 | XMS REPORT ---
Author [facility] Organization Unknown Address Unknown Phone Unavailable Care Team Providers Care Trucker Name Role Phone UNASSIGNED DOCTOR , DOCTOR PP [phone] Reason For Visit Chief Complaint BACK PAIN FALL Social History Functional Status Vital Signs Results [...]
--- OUTSIDE RECORDS SUMMARY | 2017-03-05 17:04 | XMS REPORT | Summary of Care ---
Author Author Des Torres D.O. Organization Unknown Address [address], [place] [address] Phone Unavailable Care Team Providers Care Industrial Engineer Name Role Phone Aliza Mai PP Unavailable [...]
--- OUTSIDE RECORDS SUMMARY | 2017-03-05 17:04 | XMS REPORT ---
Author [facility] Organization Unknown Address Unknown Phone Unavailable Care Team Providers Care Laundry Agent Name Role Phone UNASSIGNED DOCTOR , DOCTOR PP [phone] Reason For Visit Chief Complaint COUGH Social [...]
--- OUTSIDE RECORDS SUMMARY | 2017-03-05 17:04 | XMS REPORT | Summary of Care ---
Author Author Aliza Mai M.D. Unknown Address [address] [place], [place] [address] Phone Unavailable Care Team Providers Care Title Insurance Examiner Name Role Phone Zuleyma Ramirez M.D. Unavailable [...]
--- OUTSIDE RECORDS SUMMARY | 2017-03-05 17:04 | XMS REPORT | Summary of Care ---
Author Author Valdez Villalobos M.D. Organization Unknown Address [address] [place], [place] [id number] Phone Unavailable Care Team Providers Care Garage Supervisor Name Role Phone Edda Villalobos M.D. Unavailable Unavailable Aliza Mai PP Unavailable [...] Active Bronchitis, acute (466.0, J20.9) Status: Active Hematuria, gross (599.71, R31.0) Status: Active Flank pain (789.09, R10.9) Status: Active Urinary symptom or sign (788.99, R39.9) Status: Active Medications Name Dates Details Ciprofloxacin HCl - 500 MG Oral Tablet Take 1 tablet twice daily Quantity: 10 Valdez Villalobos M.D.* Started 29-Jun-2015 Active Allergies and Adverse Reactions Name Dates Details Penicillins Status: Active Sulfa Drugs Status: Active Procedures Procedure Dates Details Procedures not documented Immunization Name Dates Details Immunizations not documented Social History Smoking Status* Unknown if ever smoked Vital Signs Date Test Result Details 29-Jun-2015 14:13 BP Systolic 125 mm[Hg] Status: BP Diastolic 82 mm[Hg] Status: Temperature 98.8 f Status: Heart Rate 98 /min Status: O2 SAT 98 % Status: Results Date Description Value Details 29-Jun-2015 13:58 Urinalysis, Reflex to Microscopic or Culture PRN 8005 pH 6.0 (Better) Range: 5.0-7.5 SP GRAVITY 1.025 (Better) Range: 1.010-1.030 APPEARANCE CLEAR (Better) Range: Clear COLOR YELLOW (Better) Range: Straw-Yellow PROTEIN NEGATIVE mg/dL (Better) Range: Negative-Trace GLUCOSE NEGATIVE mg/dL (Better) Range: Negative KETONE NEGATIVE mg/dL (Better) Range: Negative BILIRUB NEGATIVE (Better) Range: Negative BLOOD LARGE (Abnormal) Range: Negative UROBIL 0.2 EU/dL (Better) Range: 0.2-1.0 NITRITE NEGATIVE (Better) Range: Negative LEUK SMALL (Abnormal) Range: Negative 13:58 Urine Microscopic UMIC WBC 0-2 /HPF (Better) Range: 0-5 RBC 21-50 /HPF (Abnormal) Range: 0-2 MUCUS 1+ /LPF (Better) Range: Negative-2+ BACTERIA Trace /HPF (Better) Range: Negative-Trace EPITH 3-5 /HPF (Better) Range: 0-10 Plan of Care Planned Observations* Name Dates [...]
--- OUTSIDE RECORDS SUMMARY | 2017-03-05 17:04 | XMS REPORT | Summary of Care ---
Author Author Des Torres D.O. Organization Unknown Address [address] [place], [place] [phone] Phone Unavailable Care Team Providers Care Steam Tunnel Feeder Name Role Phone Aliza Mai PP Unavailable [...] Active Flank pain (789.09, R10.9) Status: Active Medications Name Dates Details Mobic [...]
--- OUTSIDE RECORDS SUMMARY | 2017-03-05 17:05 | XMS REPORT | Continuity of Care Document ---
Author Author [facility] Organization [facility] Address Unknown Phone Unavailable Support Name Relationship Address Phone FELTON CURIEL MD Caregiver [address] [place] [address] ROMELIA COLLINS Next Of Kin [address] [place] [address] Insurance Providers Payer Name Policy Number Subscriber Name Relationship Self Pay Kaylyn Pete 18 Self / Same As Patient Chief Complaint and Reason for Visit Chief Complaint Genitourinary Complaint Reason for Visit [id number] Problems Medical Problems Problem Onset Date Status Back pain Unknown Active Ureterolithiasis Unknown Active Medications Medication Dose Route Sig Days/Qty Instructions Order Date Discontinued Date Status [No Home Meds] 01/13/15 Active Prednisone 50 Mg ORAL DAILY 5 Qty 01/13/15 07/04/15 Discontinued Orphenadrine Citrate 100 Mg ORAL THREE TIMES A DAY PRN PAIN 20 Qty 04/2407/04/15 Discontinued Oxycodone/Acetaminophen 1-2 Tab ORAL Q 6H PRN 20 Qty Pain 07/04/15 Active Social History No social history. Hospital Discharge Instructions No hospital discharge instructions. Plan of Care Discharge Date 07/04/15 1:30pm Disposition 01 HOME OR SELF-CARE Condition at Discharge Stable Instructions/Education Provided Nephrolithiasis (ED) Prescriptions See Medications Section Functional Status No functional status results. Allergies, Adverse Reactions, Alerts Allergen Type Severity Reaction Status Last Updated Penicillin Allergy Unknown Active 07/04/15 Sulfa (Sulfonamide Antibiotics) Allergy Unknown Active 07/04/15 Immunizations No immunization records. Vital Signs Acute Vital Signs Vital Response Date/Time Temperature (Fahrenheit) 98.0 Pulse 106 bpm Respirations 18 Height 5 ft 2 in Weight 141 lb Body Mass Index 25.0 kg/m^2 Results Test Source Date Result Interp. Ref. Range Comments Albumin/Globulin Ratio July 04, 2015 12:30pm 1.323 N 1.1-1.8 Albumin July 04, 2015 12:30pm 4.5 g/dL N 3.4-5.0 Total Protein July 04, 2015 12:30pm 7.9 g/dL N 6.4-8.5 Alanine Aminotransferase (ALT/SGPT) July 04, 2015 12:30pm 32 U/L N 30- 65 Aspartate Amino Transf (AST/SGOT) July 04, 2015 12:30pm 21 U/L N 15- 37 Alkaline Phosphatase July 04, 2015 12:30pm 63 U/L N 38-126 Total Bilirubin July 04, 2015 12:30pm 0.5 mg/dL N 0.1-1.0 Calcium/Ionized Calcium Ratio July 04, 2015 12:30pm 4.1 mg/dL N 3.8- 4.6 Calcium Level July 04, 2015 12:30pm 9.9 mg/dL N 8.8-10.8 Calculated Osmolality July 04, 2015 12:30pm 270 mosm/L L 280-300 Glucose Level July 04, 2015 12:30pm 99 mg/dL N 70-110 Estimated GFR (Non- July 04, 2015 12:30pm 95.1 Estimat Glomerular Filtration Rate July 04, 2015 12:30pm 115.1 BUN/Creatinine Ratio July 04, 2015 12:30pm 14 N 10-20 Creatinine July 04, 2015 12:30pm 0.72 mg/dL N 0.6-1.2 Blood Urea Nitrogen July 04, 2015 12:30pm 10 mg/dL N 7-18 Anion Gap July 04, 2015 12:30pm 19.0 MEQ/L H 3-15 Carbon Dioxide Level July 04, 2015 12:30pm 25 mmol/L N 22-29 Chloride Level July 04, 2015 12:30pm 101 mmol/L N 98-108 Potassium Level July 04, 2015 12:30pm 3.9 mmol/L N 3.5-5.1 Sodium Level July 04, 2015 12:30pm 141 mmol/L N 135-150 Urine Mucus July 04, 2015 12:35pm 4+ H Urine collection method Clean Catch Urine Squamous Epithelial Cells July 04, 2015 12:35pm Tntc /LPF Urine collection method Clean Catch Urine Bacteria July 04, 2015 12:35pm Rare /HPF Urine collection method Clean Catch Urine WBC July 04, 2015 12:35pm 2-5 /HPF Urine collection method Clean Catch Urine RBC July 04, 2015 12:35pm >100 /HPF Urine collection method Clean Catch Urine Collection Type July 04, 2015 12:35pm Clean catch Urine collection method Clean Catch Volume Urine Centrifuged July 04, 2015 12:35pm 12 ml Urine collection method Clean Catch Urine Leukocyte Esterase July 04, 2015 12:35pm Negative Negative Urine collection method Clean Catch Urine Urobilinogen July 04, 2015 12:35pm 0.2 mg/dL 0.2-1.0 Urine collection method Clean Catch Urine Bilirubin July 04, 2015 12:35pm Negative Negative Urine collection method Clean Catch Urine Nitrite July 04, 2015 12:35pm Negative Negative Urine collection method Clean Catch Urine Ketones July 04, 2015 12:35pm Negative Negative Urine collection method Clean Catch Urine RBC (Auto) July 04, 2015 12:35pm 3+ H Negative Urine collection method Clean Catch Urine Glucose (UA) July 04, 2015 12:35pm Negative Negative Urine collection method Clean Catch Urine Protein July 04, 2015 12:35pm Negative Negative Urine collection method Clean Catch Urine Specific Bishop July 04, 2015 12:35pm 1.020 1.005-1.030 Urine collection method Clean Catch Urine pH July 04, 2015 12:35pm 6.5 5.0 - 8.0 Urine collection method Clean Catch Urine Clarity July 04, 2015 12:35pm Slightly cloudy Urine collection method Clean Catch Urine Color July 04, 2015 12:35pm Dark yellow Urine collection method Clean Catch Basophils # (Auto) July 04, 2015 12:30pm 0.0 10^3uL Eosinophils # (Auto) July 04, 2015 12:30pm 0.1 10^3uL Monocytes # (Auto) July 04, 2015 12:30pm 0.4 X10^3 Lymphocytes # (Auto) July 04, 2015 12:30pm 1.3 X10^3 Neutrophils # (Auto) July 04, 2015 12:30pm 4.0 X10^3 Basophils (%) (Auto) July 04, 2015 12:30pm 0 % N 0-2 Eosinophils (%) (Auto) July 04, 2015 12:30pm 1 % N 0-4 Monocytes (%) (Auto) July 04, 2015 12:30pm 7 % N 3-11 Lymphocytes (%) (Auto) July 04, 2015 12:30pm 22 % N 20-46 Neutrophils (%) (Auto) July 04, 2015 12:30pm 70 % H 51-67 Mean Platelet Volume July 04, 2015 12:30pm 11.0 FL H 6.0-9.5 Platelet Count July 04, 2015 12:30pm 254 10^3uL N 150-450 Red Cell Distribution Width July 04, 2015 12:30pm 13.3 % N 11.8-15.6 Mean Corpuscular Hemoglobin Concent July 04, 2015 12:30pm 33.9 g/dL N 31.0-37.0 Mean Corpuscular Hemoglobin July 04, 2015 12:30pm 31.1 PG N 26.0-34.0 Mean Corpuscular Volume July 04, 2015 12:30pm 92 FL N 80-100 Hematocrit July 04, 2015 12:30pm 46.30 % H 35.00-45.00 Hemoglobin July 04, 2015 12:30pm 15.7 g/dL H 12.0-15.5 Red Blood Count July 04, 2015 12:30pm 5.05 10^6uL H 4.00-5.00 White Blood Count July 04, 2015 12:30pm 5.78 10^3uL N 4.0-11.0 Procedures No known history of procedures. Encounters Encounter Location Date/Time Departed Emergency Room [facility] 07/04/15 11:51am Recent Diagnosis
--- OUTSIDE RECORDS SUMMARY | 2017-03-05 17:05 | XMS REPORT | Summary of Care ---
Author Author Zuleyma Ramirez M.D. Organization Unknown Address [address] [place], [place] [id number] Phone Unavailable Care Team Providers Care Etl Analyst Developer Name Role Phone Zuleyma Ramirez M.D. [...] Status: Active Anxiety (300.00, F41.9) Status: Active Sinusitis (473.9, J32.9) Status: Active Medications Name Dates Details Hydrocodone-Acetaminophen 7.5-325 MG Oral Tablet TAKE 1 TABLET 3 times daily Quantity: 21 Zuleyma Ramirez M.D.* Started 11-Sep-2015 ActiveProventil HFA 108 (90 Base) MCG/ACT Inhalation Aerosol Solution INHALE 2 PUFFS 3 TIMES DAILY NEEDED. * Quantity: 1 Refills: 2 Aliza Mai M.D.* Started 19-Sep-2015 Active6.7 GM Inhaler Sertraline HCl - 50 MG Oral Tablet TAKE 1 AND 1/2 TABLETS DAILY. * Quantity: 45 Refills: 0 Aliza Mai M.D.* Started 03-Oct-2015 ActiveCiprofloxacin HCl [...] unknown Vital Signs Date Test Result Details 10-Oct-2015 15:45 BP Systolic 124 mm[Hg] Status: [...] ml/min (Better) Range: >60 EST GFR, NON-AFR THAI >60 ml/min (Better) Range: >60 Comments: EST GFR is reported in ml/min per 1.73 m2 of body surface area. For -British, please multiple result by 1.2.----- BUN:CREATININE RATIO [...] age----- 22-Sep-2015 07:42 Drug Screen PM, Fentanyl [id number] Comments: [facility] performed at: [facility], [address] [place] [address], [place] [address], [place], [address], Instrumental Music Teacher: May Knight Ph.D.[facility] Collection Date/Time: [id number] Results Received Date/Time: [id number] Reported Date/Time: Fentanyl NEGATIVE ng/mL (Better) Range: <0.5 Comments: [AP]----- Norfentanyl NEGATIVE ng/mL (Better) Range: <0.5 Comments: [AP]----- 11:45 Drug Screen PM, Tramadol [id number] Comments: [facility] performed at: [facility], [address] [place] [address], [place], [address], Instrumental Music Teacher: May Knight Ph.D.[facility] Collection Date/Time: [id number] Results Received Date/Time : [id number] Reported Date/Time: [id number] performed at: [facility], [address] [place] [address], [place] [address], [address], Instrumental Music Teacher: May Knight Ph.D.[facility] Collection Date/Time: [id number] Results Received Date/Time : [id number] Reported Date/Time: Desmethyltramadol NEGATIVE ng/mL (Better) Range: <100 Comments: [AP]----- Tramadol NEGATIVE ng/mL (Better) Range: <100 Comments: [AP]----- 14:36 Drug Screen PM, Alcohol Metabolites [id number] Comments: [facility] performed at: [facility], [address] [place] [address], [address], [place], [address], Instrumental Music Teacher: May Vang Knight Ph.D.[facility] Collection Date/Time: [id number] Results Received Date/Time: [id number] Reported Date/Time: [id number] performed at: [facility], [address] [place] [address], [address], [place], [address], Instrumental Music Teacher: May Vang Knight Ph.D.[facility] Collection Date/Time: [id number] Results Received Date/Time: [id number] Reported Date/Time: [id number] performed at: [facility], [address] [place] [address], [address], [place], [address], Instrumental Music Teacher: May Knight Ph.D.[facility] Collection Date/Time: [id number] Results Received Date/Time: [id number] Reported Date/Time: [id number] Alcohol Metabolites NEGATIVE ng/mL (Better) Range: <500 Comments: [AP]----- Please note: SEE NOTE (Better) Comments: * These results are for medical treatment only Analysis was performed as non-forensic testing *For assistance with interpreting these drug results,please contact a [facility] ToxicologySpecialist: [phone] ( ),M-F, 8am-6pm EST.[AP]----- 23-Sep-2015 10:00 Drug Screen PM Profile 1 [id number] Comments: [facility] performed at: [facility], [address] [place] [address], [address], [place], [address], Instrumental Music Teacher: May Knight Ph.D.[facility] Collection Date/Time: [id number] Results Received Date/Time: [id number] Reported Date/Time: [id number] performed at: , [facility], [address] [place] [address], [address], [place], [place], [address] [place] [address], Instrumental Music Teacher: May Knight Ph.D.[facility] Collection Date/Time: [id number] Results Received Date/Time: [id number] Reported Date/Time: [id number] performed at: , [facility], [address] [place] [address], [address], [place], [address], Instrumental Music Teacher: May Knight Ph.D.[facility] Collection Date/Time: [id number] Results Received Date/Time: [id number] Reported Date/Time: [id number] performed at: , [facility], [address] [place] [address], [address], [place], [place], [address] [place] [address], Instrumental Music Teacher: May Knight Ph.D.[facility] Collection Date/Time: [id number] Results Received Date/Time: [id number] Reported Date/Time: [id number] performed at: , [facility], [address] [place] [address], [address], [place], [place], [address] [place] [address], Instrumental Music Teacher: May Knight Ph.D.[facility] Collection Date/Time: [id number] Results Received Date/Time: [id number] Reported Date/Time: [id number] Management Profile 1 w/ Confirmation, Urine Drug [...] ng/mL (Abnormal) Range: <100 Comments: [AP]----- EDDP 25222 ng/mL (Above high threshold) Range: <100 Comments: [...] medMATCH Morphine CONSISTENT (Better) Comments: [AP]----- Norhydrocodone 03350 ng/mL (Above high threshold) Range: <50 Comments: [...] medication(s) listed.[AP]----- 10:00 Drug Screen PM, Meperidine [id number] Comments: [facility] performed at: [facility], [address] [place] [address], [address], [address], Instrumental Music Teacher: May Knight Ph.D.[facility] Collection Date/Time: [id number] Results Received Date/Time : [id number] Reported Date/Time: [id number] performed at: [facility], [address] [place] [address], [address], [address], Instrumental Music Teacher: May Knight Ph.D.[facility] Collection Date/Time: [id number] Results Received Date/Time : [id number] Reported Date/Time: [id number] performed at: [facility], [address] [place] [address], [address], [address], Instrumental Music Teacher: May Knight Ph.D.[facility] Collection Date/Time: [id number] Results Received Date/Time : [id number] Reported Date/Time: [id number] performed at: [facility], [address] [place] [address], [address], [address], Instrumental Music Teacher: May Knight Ph.D.[facility] Collection Date/Time: [id number] Results Received Date/Time : [id number] Reported Date/Time: [id number] performed at: [facility], [address], [place], [address], Instrumental Music Teacher: May Knight Ph.D.[facility] Collection Date/Time: [id number] Results Received Date/Time : [id number] Reported Date/Time: [id number] Meperidine NEGATIVE ng/mL (Better) Range: <100 Comments: [AP]----- Normeperidine NEGATIVE ng/mL (Better) Range: <100 Comments: [AP]----- Plan of Care Planned Observations* Name Dates Details Planned Goals not documented Goal Planned Encounters* Appointment; Provider: Aliza Mai On 17-Oct-2015 11:30 * Appointment; Provider: Valdez Monae On [...]
--- OUTSIDE RECORDS SUMMARY | 2017-03-05 17:05 | XMS REPORT | Summary of Care ---
Author Author Stefan Aviles D.O. Organization Unknown Address [address] [place], [place] [id number] Phone Unavailable Care Team Providers Care Architecture Manager Name Role Phone Aliza Mai PP Unavailable [...]
--- OUTSIDE RECORDS SUMMARY | 2017-03-05 17:05 | XMS REPORT | Summary of Care ---
Author Author Zuleyma Ramirez M.D. Unknown Address [address] [place], [place] [id number] Phone Unavailable Care Team Providers Care Active Directory Administrator Name Role Phone Zuleyma Ramirez M.D. Unavailable [...] V89.2XXA) Status: Active Medications Name Dates Details Hydrocodone-Acetaminophen [...]
--- OUTSIDE RECORDS SUMMARY | 2017-03-05 17:05 | XMS REPORT | Summary of Care ---
Author Author Des Torres D.O. Organization Unknown Address [address] [place], [place] [id number] Phone Unavailable Care Team Providers Care Healthcare Economics Manager Name Role Phone Aliza Mai JAYLENE Unavailable [...]
--- OUTSIDE RECORDS SUMMARY | 2017-03-05 17:21 | XMS REPORT ---
Author Author [facility], SYSTEM Organization Unknown Address Unknown Phone Unavailable Care Team Providers Care Cutter Hot Knife Name Role Phone UNASSIGNED DOCTOR , DOCTOR PP [phone] Reason For Visit Chief Complaint HIP PAIN [...]
[2017-03-05] MEDS ORDERED: NO DAILY MEDS (17:22)
--- OUTSIDE RECORDS SUMMARY | 2017-03-05 17:22 | XMS REPORT ---
Author Author [facility], SYSTEM Organization Unknown Address Unknown Phone Unavailable Care Team Providers Care Audio Installer Name Role Phone UNASSIGNED DOCTOR , DOCTOR PP [phone] Reason For Visit Chief Complaint RT HIP [...]
--- OUTSIDE RECORDS SUMMARY | 2017-03-05 17:22 | XMS REPORT ---
Author Author [facility], SYSTEM Organization Unknown Address Unknown Phone Unavailable Care Team Providers Care Regional Project Manager Name Role Phone UNASSIGNED DOCTOR , DOCTOR PP [phone] Reason For Visit Chief Complaint HEAD/NECK/BACK PAIN [...]
--- OUTSIDE RECORDS SUMMARY | 2017-03-05 17:22 | XMS REPORT ---
Author Author GENERATED, SYSTEM Organization Unknown Address Unknown Phone Unavailable Care Team Providers Care Abrasive Grinder Name Role Phone UNASSIGNED DOCTOR , DOCTOR PP [phone] Reason For Visit Chief Complaint NUMBNESS/TINGLING Social [...] H (65-99 MG/DL) GFR EST NON AFR COMORAN >90 ML/MIN GFRA EST AFR AMER >90 [...] 0066 - CHEST 1 VIEW CPT Code(s): 10416-; ; ; INDICATION / CLINICAL HISTORY: Head [...]
--- OUTSIDE RECORDS SUMMARY | 2017-03-05 17:22 | XMS REPORT ---
Author Author GENERATED, SYSTEM Organization Unknown Address Unknown Phone Unavailable Care Team Providers Care Obedience Trainer Name Role Phone MD KATHY, JULIAN [phone] Reason For Visit Chief Complaint MIGRAINE, NECK/HIP [...]
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
--- OUTSIDE RECORDS SUMMARY | 2017-03-05 17:23 | XMS REPORT ---
Author Author GENERATED, SYSTEM Organization Unknown Address Unknown Phone Unavailable Care Team Providers Care Psych Social Worker Name Role Phone UNASSIGNED DOCTOR , DOCTOR PP [phone] Reason For Visit Chief Complaint BACK PAIN [...]
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
--- OUTSIDE RECORDS SUMMARY | 2017-03-05 17:23 | XMS REPORT | Continuity of Care Document ---
Author Author [facility] Organization [facility] Address Unknown Phone Unavailable Support Name Relationship Address Phone FELTON CURIEL MD Caregiver [address] [place] [address] ROMELIA COLLINS Next Of Kin [address] [place] [address] Insurance Providers Payer Name Policy Number Subscriber Name Relationship Self Pay Kaylyn Pete 18 Self / Same As Patient Chief Complaint and Reason for Visit Chief Complaint Genitourinary Complaint Reason for Visit [id number] Problems Medical Problems Problem Onset Date Status [...] Urine collection method Clean Catch Urine Specific [place]eland July 04, 2015 12:35pm 1.020 1.005-1.030 Urine [...] Encounters Encounter Location Date/Time Departed Emergency Room [facility] 07/04/15 11:51am Recent Diagnosis
--- OUTSIDE RECORDS SUMMARY | 2017-03-05 17:23 | XMS REPORT | Continuity of Care Document ---
Author Author [facility] Organization [facility] Address Unknown Phone Unavailable Support Name Relationship Address Phone DAVID AVILES Next Of Kin [address] [place] [address] Unavailable Insurance Providers Payer Name Policy Number [...] Procedure Code Date THER/PROPH/[place]AG [place]J [place] PUSH 06011 05/16/13 TX/PRO/DX INJ NEW DRUG ADDON 31871 05/16/13 TX/PRO/DX INJ NEW DRUG ADDON 44486 05/16/13 HYDRATE IV INFUSION ADD-ON 89261 05/16/13 Encounters Encounter Location Date/Time Departed Emergency Room [facility] 05/16/13 8:14am
--- OUTSIDE RECORDS SUMMARY | 2017-03-05 17:23 | XMS REPORT ---
Author Author GENERATED, SYSTEM Organization Unknown Address Unknown Phone Unavailable Care Team Providers Care Bail Bondsman Name Role Phone MD KATHY, JULIAN PP [phone] Reason For Visit Chief Complaint COUGH Social [...]
--- OUTSIDE RECORDS SUMMARY | 2017-03-05 17:23 | XMS REPORT ---
Author Author GENERATED, SYSTEM Organization Unknown Address Unknown Phone Unavailable Care Team Providers Care Electrical And Instrument Mechanic Name Role Phone UNASSIGNED DOCTOR , DOCTOR PP [phone] Reason For Visit Chief Complaint MIGRAINE WITH [...]
--- OUTSIDE RECORDS SUMMARY | 2017-03-05 17:23 | XMS REPORT | Continuity of Care Document ---
Author Author [facility] Organization [facility] Address Unknown Phone Unavailable Support Name Relationship Address Phone DAVID AVILES Next Of Kin [address] [place] [address] Unavailable Insurance Providers Payer Name Policy Number [...] Procedure Code Date THER/PROPH/[place]AG [place]J [place] PUSH 03444 05/16/13 TX/PRO/DX INJ NEW DRUG ADDON 49335 05/16/13 TX/PRO/DX INJ NEW DRUG ADDON 69358 05/16/13 HYDRATE IV INFUSION ADD-ON 06268 05/16/13 Encounters Encounter Location Date/Time Departed Emergency Room [facility] 05/16/13 8:14am
--- OUTSIDE RECORDS SUMMARY | 2017-03-05 17:23 | XMS REPORT ---
Author Author GENERATED, SYSTEM Organization Unknown Address Unknown Phone Unavailable Care Team Providers Care Survey Analyst Name Role Phone MD KATHY, JULIAN PP [phone] Reason For Visit Chief Complaint ELBOW PAIN [...]
--- OUTSIDE RECORDS SUMMARY | 2017-03-05 17:23 | XMS REPORT ---
Author Author GENERATED, SYSTEM Organization Unknown Address Unknown Phone Unavailable Care Team Providers Care Media Center Assistant Name Role Phone UNASSIGNED DOCTORMD DOCTOR PP [phone] Reason For Visit Chief Complaint ALLERGIC REACTION [...]
--- OUTSIDE RECORDS SUMMARY | 2017-03-05 17:23 | XMS REPORT ---
Author Author GENERATED, SYSTEM Organization Unknown Address Unknown Phone Unavailable Care Team Providers Care German Teacher Name Role Phone UNASSIGNED DOCTOR , DOCTOR PP [phone] Reason For Visit Chief Complaint COUGH Social [...]
--- NOTE | 2017-03-05 17:29 | ERPDOC ---
Departure Disposition Decision Date: Mar 05, 2017 Disposition Decision Time: 17:28 Disposition: 01 DISCHARGED HOME, SELF-CARE Impression Impression Impression: Primary Impression: Migraine headache Qualified Codes: G43.909 - Migraine, unspecified, not intractable, without status migrainosus Severity: Mild Condition: Improved Seen By: Physician only Referrals: PHILIP BANEGAS MD 1 Day Call for appointment Patient Instructions: Migraine Headache (ED) Problems/Meds/Labs Reviewed?: Yes Medications reviewed and manag: Yes Follow up care ordered?: Yes Mental Status: Alert, Oriented HPI - Headache General Chief Complaint: Headache Stated Complaint: MIGRAINE Time Seen by Provider: 17:08 Source: patient (Patient presents to the ER with a Migraine Headache. Patient states this is her normal migraine, without suspicious symptoms) Exam Limitations: no limitations HPI - Headache Occurred At: home Onset: Changing over time Duration: other (2-3 days) Pain Scale: Now & Worst: 7/10 Severity/Quality: moderate Location: global Prior Headaches/Recent Trauma: occasional headaches Modifying Factors: medication, rest, No: exposure to light Associated Symptoms: nausea/vomiting, DENIES: confusion, facial pain, fatigue, fever/chills, flushing, loss of consciousness, nasal congestion, nasal drainage , numbness in legs/feet, rash, seizures, sinus infection, stiff neck, vision changes, weakness Hx of Similar Symptoms: Yes Allergies: Coded Allergies: Penicillins (Verified Allergy, Severe, 03/05/17) Sulfa (Sulfonamide Antibiotics) (Verified Allergy, Severe, 03/05/17) diphenhydramine (Verified Allergy, Severe, PT STATES UNDESCRIBABLE, ) MAKES HER WANT TO ketorolac (Verified Allergy, Mild, 03/05/17) "IT'S LIKE HIVES, BUT YOU CAN'T SEE THEM. I GET ALL ITCHY." butorphanol (Verified Adverse Reaction, Unknown, 03/05/17) "I DON'T LIKE HOW IT MAKES ME FEEL" Past History Past Medical History ENMT: allergies, dental problems Female: UTI Neurological: migraines Surgical History Reproductive/: , tubal ligation Family History Family PMH: FOUND: hypertension Social History Smoking Status: Smoker,current status unk Does patient use chewing tobac: No Second Hand Exposure: No Substance Use Type: does not use Alcohol Intake: none Housing: house Service: No Occupational Hazard: No Advance Directives: Yes Full Code Record Review Pertinent history updated: Yes Review of Systems Constitutional Constitutional: DENIES: chills, fever Eyes Lids/Accessories: DENIES: erythema, swelling ENMT Ears: DENIES: erythema, pain Balance: DENIES: ataxia, vertigo Sinuses: DENIES: congestion, rhinorrhea Mouth/Throat: DENIES: sore throat Cardiovascular Cardiac: DENIES: chest pain, dyspnea on exertion, orthopnea Rhythm/Rate: DENIES: tachycardia Pulmonary Respiratory: DENIES: cough, dyspnea, sputum GI Upper Abdomen: DENIES: nausea, pain, vomiting Lower Abdomen: DENIES: constipation, diarrhea, pain General: DENIES: dysuria Musculoskeletal General: DENIES: cramps, pain, weakness Integumentary Skin: DENIES: color change, itching, rash Neurological General: headache, DENIES: ataxia, change in strength, numbness, poor coordination, seizures, syncope, vertigo, weakness Psychiatric Psychiatric: DENIES: anxiety, depression, nervousness Hematologic/Lymphatic Hematologic/Lymphatic: DENIES: anemia Allergic/Immunological Allergic/Immunoligical: DENIES: sneezing All other Systems All Other Systems: Reviewed and Negative Physical Exam General General Nourishment: well nourished, well developed, appears stated age, adult General Body Habitus: well groomed Vitals and Pain First Documented Vital Signs Date Time Temp Pulse Resp B/P Pulse Ox O2 Delivery O2 Flow Rate FiO2 03/05/17 17:00 98.1 100 16 126/82 98 Room Air Weight: Kilograms: Height (feet): 5 Height (inches): 2.00 Triage Pain Scale: RN VS reviewed by Provider: Yes Eyes (brief) Eyes Brief: found: EOMI, PERRL, not found: papilledema ENMT (brief) ENMT Brief: FOUND: TM clear, TM good light reflex, mucosa moist, NOT FOUND: pharnyx erythema Neck (brief) Neck: FOUND: trachea midline, NOT FOUND: adenopathy, nuchal rigidity, tenderness, tracheal deviation Respiratory (brief) Respiratory: FOUND: clear all carroll, equal bilaterally Cardiovascular (brief) Cardiac: FOUND: regular rate, regular rhythm Capillary Refill: <2 sec Pulses: all distal extremities, equal, strong Abdomen (brief) Abdominal Brief: FOUND: bowel normo active x4, soft, NOT FOUND: distended, tender Lymphatic (brief) Lymphatic Brief: NOT FOUND: adenopathy Musculoskeletal (brief) Musculoskeletal Brief: NOT FOUND: spasm, tenderness Integumentary (brief) Integumentary Brief: FOUND: pink, warm Neurologic (brief) Neurological Brief: FOUND: CN w/o gross def to obs, DTR 2/4 all extremities, gait w/o gross def to obs, motor-no gross deficits, sensory-no gross deficits, NOT FOUND: ataxia Psychiatric (brief) Psychiatric Brief: FOUND: alert, attentive, normal affect, oriented Differential Diagnoses Considering: Carbon Monoxide Toxicity, Cerebral Hemorrhage, Cervical Strain, CVA - Thrombotic, CVA - Hemorrhagic, Dental Caries, Encephalitis, Acute Glaucoma , Headache, Headache - Migraine, Headache - Tension/Muscle, Hypertensive Emergency, Increased ICP, Meningitis, Normal Pressure Hydroceph, Sinusitis - Sphenoid, Sinusitis - Maxillary, Sinusitis - Frontal, Sub-arachnoid Hemorrhage, Temporal Arteritis, TMJ, Toothache, Toxicity - Other, Trigeminal Neuralgia, Tumor, Vasculitis, Venous Sinus Thrombus, Viral Syndrome, Vomiting, Other Progress Results/Orders Orders Procedure Category Date Status Time Nalbuphine (Nubain) PHA 03/05/17 Complete 17:30 Promethazine PHA 03/05/17 Complete (Phenergan) 17:30 Orphenadrine (Norflex) PHA 03/05/17 Complete 17:30 Medications Current ED Medications Nalbuphine HCl (Nubain) 10 mg O ONCE IM Last administered on 03/05/17 17:45; Start 03/05/17 at 17:30; Stop 03/05/17 at 17:31; Status DC Promethazine HCl (Phenergan) 25 mg O ONCE IM Last administered on 03/05/17 17 :44; Start 03/05/17 at 17:30; Stop 03/05/17 at 17:31; Status DC Orphenadrine Citrate (Norflex) 60 mg O ONCE IM Last administered on 03/05/17 17:45; Start 03/05/17 at 17:30; Stop 03/05/17 at 17:31; Status DC Progress Progress I recommended obtaining labs, IVF, and CT, but the patient refused Patient is requesting a Cocktail of "Nubain, Norflex and Phenergan" Patient lists Benadryl and Toradol as allergies I spoke to the patient about Narcotic treatment and rebound The patient needs to follow with Her PCP and Neurology Patient expressed understanding SULEMA WALSH DO Mar 05, 2017 17:29
[2017-03-05] MEDS ORDERED: ORPHENADRINE 60mg/2ml INJECTION IM ONE (17:30)
[2017-03-05] MEDS ORDERED: NALBUPHINE 10mg/ml INJECTION IM ONE (17:30)
[2017-03-05] MEDS ORDERED: PROMETHAZINE 25 MG INJECTION IM ONE (17:30)
[2017-03-05 18:03] VITALS: BP 116/79; PULSE 86; RESP 16; TEMP 98.1; O2SAT 96
--- NOTE | 2017-03-05 18:03 | NUR ---
DISCHARGE WRITTEN INSTRUCTIONS REVIEWED AND SENT WITH PT. PT VERBALIZES UNDERSTANDING OF DI, DENIES QUESTIONS. REPORTS DECREAE IN HEADACHE TO 5/10 AND STATES IS "TOLERABLE." PT AMBULATES OUT OF ER WITH STEADY GAIT ACCOMP BY FEMALE TALENT DEVELOPMENT SPECIALIST AT THIS TIME.
== END 2017-03-05 18:03 | disposition home or self-care (01) ==
LOC: ED 16:58
DX: G43.909 Migraine, unspecified, not intractable, without status migrainosus (principal)
CPT/HCPCS: 96372